=== PATIENT | male | born 1950 | race Caucasian/White ===

== ENCOUNTER 2025-05-16 16:19 | Emergency (ER) | payer BC, MEDICAID ==
[~2025-05-16] VITALS: Ht 170.2 cm; Wt 82.0 kg
[~2025-05-16 16:19] MED LIST: ASPI-1406 PO; FINA5TAB11 PO; METO-396 MT; PANT40TA51 PO; QUET50TA PO; TAMS-54 MT
[2025-05-16 16:22] VITALS: O2SAT 99
[2025-05-16 17:03] LABS: HEMOGLOBIN. 11.6 g/dL (14.0-18.0)
[2025-05-16 17:05] LABS: BASOPHILS % 1.0 % (0.0-2.0); EOSINOPHILS % 5.0 % (0.0-5.0); HEMATOCRIT. 35.1 % (42.0-52.0); LYMPHOCYTES % 22.4 % (20.0-50.0); MEAN PLATELET VOLUME 7.7 fl (7.4-10.4); MONOCYTES % 10.0 % (2.0-8.0); NEUTROPHILS % 61.6 % (40.0-76.0); PLATELET 249 x1000/uL (130-400); RED BLOOD CELL COUNT 3.79 mill/uL (4.7-6.1); RED CELL DISTRIBUTION WIDTH 13.9 % (11.6-14.6)
[2025-05-16 17:18] LABS: CREATININE 1.1 mg/dL (0.6-1.3); UREA NITROGEN BLOOD 14 mg/dL (9-23)
[2025-05-16 19:07] LABS: CLARITY URINE CLEAR (CLEAR); COLOR URINE YELLOW (YELLOW); GLUCOSE URINE NEGATIVE (NEGATIVE); KETONES URINE NEGATIVE (NEGATIVE); LEUKOCYTE ESTERASE URINE NEGATIVE (NEGATIVE); NITRITE URINE NEGATIVE (NEGATIVE); OCCULT BLOOD URINE 1+ (NEGATIVE); PH URINE 6.5 (4.5-8.0); PROTEIN URINE NEGATIVE (NEGATIVE); SPECIFIC GRAVITY URINE 1.011 (1.005-1.030); UROBILINOGEN URINE 0.2 E.U./dL (0.2-1.0)
[2025-05-16 19:22] LABS: BACTERIA URINE NONE SEEN; RBC URINE 0-2 /hpf (0-2); SQUAMOUS EPITHELIAL CELL URINE NONE SEEN /lpf (RARE/1+); WBC URINE NONE SEEN /hpf (0-2); YEAST URINE NONE SEEN
[2025-05-16] MEDS ORDERED: TOPUD PO (19:26)
[2025-05-16] MEDS ORDERED: BO1 TP (19:26)
[2025-05-16] MEDS: BACITRACIN ZINC OINT UDPKT TOP STA (19:50)
[2025-05-16] MEDS: IBUPROFEN 400MG TABLET PO ONE (19:50)
[2025-05-16] MEDS: ACETAMINOPHEN 325MG TABLET PO ONE (19:50)
[2025-05-16 22:15] VITALS: TEMP 36.8
[2025-05-16 22:44] VITALS: BP 163/91; PULSE 74; RESP 18; O2SAT 99
== END 2025-05-16 22:54 | disposition home or self-care (01) ==
LOC: ER 16:19
DX: S00.03XA Contusion of scalp, initial encounter (principal); F20.9 Schizophrenia, unspecified; E11.9 Type 2 diabetes mellitus without complications; I25.10 Atherosclerotic heart disease of native coronary artery without angina pectoris; I50.9 Heart failure, unspecified; N40.0 Benign prostatic hyperplasia without lower urinary tract symptoms; Z79.899 Other long term (current) drug therapy; Z79.82 Long term (current) use of aspirin; W19.XXXA Unspecified fall, initial encounter; Y93.89 Activity, other specified; Y92.89 Other specified places as the place of occurrence of the external cause; Y99.8 Other external cause status
CPT/HCPCS: 36415; 80048; 81003; 85025; 99285